=== PATIENT | male | born 1950 | race Caucasian/White ===

== ENCOUNTER 2017-03-25 12:09 | Inpatient (IN) | payer BC, MEDICARE ==
[~2017-03-25] VITALS: Ht 180.3 cm; Wt 142.1 kg
[2017-04-08] MEDS ORDERED: ZOCO40TA PO (15:38)
[2017-04-08] MEDS ORDERED: METF1000 PO (15:38)
[2017-04-08] MEDS ORDERED: HYZA50TA2 PO (15:38)
[2017-04-11] MEDS ORDERED: SCOPOLAMINE 1.5 MG PATCH T-DERMAL SCH (07:00)
[2017-04-11] MEDS ORDERED: metroNIDAZOLE 500 MG INJ 100 ML IV SCH (07:00)
[2017-04-11] MEDS ORDERED: ACETAMINOPHEN 1000 MG/100 ML VIAL IV SCH (07:00)
[2017-04-11] MEDS ORDERED: ceFAZolin 2 GM PREMIX 50 ML IV SCH (07:00)
[2017-04-11] MEDS ORDERED: CHLORHEXIDINE GLUCONATE 2 % 1 PACK (2 CLOTHS) TOPICAL PRN (07:00)
[2017-04-11] MEDS ORDERED: APREPITANT 40 MG CAP PO SCH (07:00)
[2017-04-11] MEDS ORDERED: POVIDONE IODINE 5% (ANTISEPSIS KIT) 4 APPLICATIONS EACH NARE PRN (07:00)
[2017-04-11] MEDS ORDERED: LACTATED RINGER'S 1000 ML IV PRN (07:00)
[2017-04-11] MEDS ORDERED: INSULIN HUMAN REGULAR 1,000 UNITS/10 ML VIAL SQ PRN (07:00)
[2017-04-11] MEDS ORDERED: SODIUM CHLORID 0.9% 500 ML IV PRN (07:00)
[2017-04-11] MEDS ORDERED: METOPROLOL TARTRATE 25 MG TAB PO PRN (07:00)
[2017-04-11] MEDS ORDERED: ONDANSETRON HCL 4 MG/2 ML VIAL IV PUSH SCH (07:00)
[2017-04-11] MEDS ORDERED: CALC600T25 (07:06)
[2017-04-11] MEDS ORDERED: VITA1000 PO (07:06)
[2017-04-11] MEDS ORDERED: OMEGCAP PO (07:06)
[2017-04-11] MEDS ORDERED: ASPI81CH CHEW (07:06)
[2017-04-11] MEDS ORDERED: BUPIVACAINE/EPINEPHRINE 0.25% 50 ML VIAL ONE (09:15)
[2017-04-11] MEDS ORDERED: Post-op Orders (for Pharmacy) MISC OTHER ONE (10:45)
[2017-04-11] MEDS ORDERED: ACETAMINOPHEN 325MG/HYDROcodone 7.5MG/15ML UDC PO PRN ×2 (10:45)
[2017-04-11] MEDS ORDERED: Post-op Orders (for Pharmacy) MISC XX ONE (10:45)
[2017-04-11] MEDS ORDERED: ONDANSETRON HCL 4 MG/2 ML VIAL IV PRN (10:45)
[2017-04-11] MEDS ORDERED: NALOXONE HCL 0.4 MG/ML AMP IV PRN (10:45)
[2017-04-11] MEDS ORDERED: diphenhydrAMINE HCL ELIXIR 12.5 MG/5 ML CUP PO PRN (10:45)
[2017-04-11] MEDS ORDERED: SODIUM CHLORIDE 0.9% FLUSH 10 ML FLUSH PRN (10:45)
[2017-04-11] MEDS ORDERED: diphenhydrAMINE HCL 50 MG/ML VIAL IV PRN (10:45)
[2017-04-11] MEDS ORDERED: SODIUM CHLORIDE 0.9% FLUSH 10 ML FLUSH IV FLUSH PRN (10:45)
[2017-04-11] MEDS ORDERED: MIDAZOLAM HCL 2 MG/2 ML VIAL ONE (11:16)
[2017-04-11] MEDS ORDERED: *morphine SULFATE 8 MG/ML PERIprocedure ONLY ONE ×2 (11:16→11:23)
[2017-04-11] MEDS: 1/2 NS + KCL 20 MEQ INJ 1,000 ML IV SCH ×2 (11:40→20:00)
[2017-04-11] MEDS ORDERED: MORPHINE SULFATE 30 MG/30 ML PCA IV SCH (12:00)
[2017-04-11] MEDS ORDERED: PROPOFOL 200 MG/20 ML AMP IV ONE (12:00)
[2017-04-11] MEDS ORDERED: LACTATED RINGER'S 1000 ML INJ 1,000 ML IV ONE (12:00)
[2017-04-11] MEDS ORDERED: ePHEDrine/NS 25 MG/5 ML SYR IV ONE (12:00)
[2017-04-11] MEDS ORDERED: PHENYLEPH/NS 1000 MCG/10 ML SYR IV ONE (12:00)
[2017-04-11] MEDS ORDERED: NEOSTIGMINE 3 MG/3 ML SYR IV ONE (12:00)
[2017-04-11] MEDS: METOCLOPRAMIDE HCL 10 MG/2 ML VIAL IV PUSH SCH ×3 (13:00→23:29)
[2017-04-11] MEDS ORDERED: *HYDROmorphone PF 1 MG VIAL PERIprocedural Use ONLY ONE (13:39)
[2017-04-11] MEDS ORDERED: DO NOT ADM ANY ANTICOAGULANT DRUGS PRN (14:15)
[2017-04-11] MEDS: ENOXAPARIN SODIUM 40 MG/0.4 ML SYRINGE SQ SCH (15:00)
[2017-04-11 16:00] VITALS: BP 155/70; PULSE 69; RESP 20; TEMP 97.6; O2SAT 99
[2017-04-11] MEDS: metroNIDAZOLE 500 MG INJ 100 ML IV SCH ×2 (16:54→23:28)
[2017-04-11] MEDS: SODIUM CHLORIDE 0.9% FLUSH 10 ML FLUSH IV FLUSH SCH (19:37)
[2017-04-11 20:00] VITALS: BP 144/62; PULSE 65; RESP 18; TEMP 97.3; O2SAT 94
[2017-04-11] MEDS ORDERED: SODIUM CHLORIDE 0.9% FLUSH 10 ML FLUSH IV FLUSH SCH (21:00)
[2017-04-11] MEDS: PCA - TOTAL MG MORPHINE DELIVERED PER SHIFT SCH (22:00)
[2017-04-12] VITALS: BP 154/72; PULSE 65; RESP 18; TEMP 97.6; O2SAT 98
[2017-04-12] MEDS: 1/2 NS + KCL 20 MEQ INJ 1,000 ML IV SCH ×4 (01:20→14:46)
[2017-04-12 04:00] VITALS: BP 153/65; PULSE 72; RESP 18; TEMP 97.4; O2SAT 97
[2017-04-12] MEDS: METOCLOPRAMIDE HCL 10 MG/2 ML VIAL IV PUSH SCH (05:45)
[2017-04-12] MEDS: PCA - TOTAL MG MORPHINE DELIVERED PER SHIFT SCH (06:00)
[2017-04-12 08:00] VITALS: BP 147/63; PULSE 76; RESP 20; TEMP 98.2; O2SAT 94
[2017-04-12] MEDS: metroNIDAZOLE 500 MG INJ 100 ML IV SCH (08:00)
[2017-04-12] MEDS: SODIUM CHLORIDE 0.9% FLUSH 10 ML FLUSH IV FLUSH SCH (08:34)
[2017-04-12] MEDS ORDERED: PANTOPRAZOLE SOD 40 MG DELAYED RELEASE TAB PO SCH (09:00)
[2017-04-12] MEDS ORDERED: METOCLOPRAMIDE HCL 10 MG/2 ML VIAL IV PUSH PRN (10:45)
[2017-04-12 12:00] VITALS: BP 147/67; PULSE 69; RESP 20; TEMP 98.3; O2SAT 98
[2017-04-12] MEDS ORDERED: LOSARTAN 50 MG TAB PO SCH (13:00)
[2017-04-12] MEDS: RESP: ALBUTEROL 1.25 MG/3 ML NEB (SCH) NEB ×2 (13:00→16:47)
--- NOTE | 2017-04-12 13:17 | HHI.PR ---
Subjective Subjective Notes Sitting on side of bed Nausea and pain controlled with medicatons Tolerated fluids C/O cough Objective Vitals/I&O Vital Signs Date Time Temp Pulse Resp B/P (MAP) Pulse Ox O2 Delivery O2 Flow Rate FiO2 04/12/17 12:00 98.3 69 20 147/67 (93) 98 04/11/17 14:48 Nasal Cannula 2 Cardiovascular: Regular Lungs: Rhonchi Abdomen: Post-op tenderness Extremities: SCD's on Wound Wound : Wound Location: Abdomen Appearance: Clean & Dry A/P Assessment and Plan 66yo M POD#1 laparoscopic VSG -Nebs Q6h and STAT CXR -Continue with using IS and frequent ambulation -Restart Losartan for BP control (home meds) -Continue to increase fluids as tolerated -Check blood sugars ACHS The exam, history, and the medical decision-making described in the above note were completed with the assistance of the mid-level provider. I reviewed and agree with the findings presented. I attest that I had a [id number] encounter with the patient on the same day, and personally performed and documented my assessment and findings in the medical record. Discharge Planning D/C later this evening Shirlene Martinez Apr 12, 2017 13:17 Mukesh Navas MD May 01, 2017 16:30
[2017-04-12] MEDS: ENOXAPARIN SODIUM 40 MG/0.4 ML SYRINGE SQ SCH (14:44)
--- NOTE | 2017-04-12 15:36 | RADRPT ---
EXAM DATE/TIME: 04/12/2017 14:30 [facility] COMPARISON: No previous studies available for comparison. INDICATIONS : Blood in his sputum MEDICAL HISTORY : None. SURGICAL HISTORY : None. ENCOUNTER: Initial ACUITY: 1 day PAIN SCORE: 0/10 LOCATION: Bilateral chest FINDINGS: A single view of the chest demonstrates the lungs to be symmetrically aerated without evidence of mas s, infiltrate or effusion. The cardiomediastinal contours are unremarkable. Osseous structures are intact. CONCLUSION: No acute disease. Kristopher Grier MD on April 12, 2017 at 15:34 Board Certified Radiologist. This report was verified electronically.
[2017-04-12 16:00] VITALS: BP 148/70; PULSE 72; RESP 20; TEMP 98.1; O2SAT 95
[2017-04-12] MEDS ORDERED: BENZOCAINE-MENTHOL (SUGAR FREE) 15 MG-3.6 MG LOZENGE BUCCAL ONE (17:00)
--- NOTE | 2017-04-28 15:27 | MP ---
cc: MINERVA NAVAS DATE OF SURGERY: 04/11/2017 DATE OF : 1950 PREOPERATIVE DIAGNOSIS: Morbid obesity with BMI of 43 complicated by hypercholesterolemia. POSTOPERATIVE DIAGNOSIS Morbid obesity with BMI of 43 complicated by hypercholesterolemia. PROCEDURE Laparoscopic vertical sleeve gastrectomy over 36-Mongolian drinking bougie. SURGEON Minerva Navas MD PRIMARY CARE PEDIATRICIAN: Vega Broderick MD. Dr. Brdoerick's assistance was necessary during the procedure due to the complexity of the procedure. Dr. Broderick was utilized for manipulation and exposure during the procedure. Dr. Broderick was present for this entire procedure, the plastic surgery assistant provided by [employer] was utilized for managing the camera. ANESTHESIA General endotracheal anesthesia ESTIMATED BLOOD LOSS Scant FINDINGS Fatty liver SPECIMENS None COMPLICATIONS None. PROCEDURE Laparoscopic vertical sleeve gastrectomy over a 36-Mongolian ViSiGi bougie. PROCEDURE IN DETAIL The patient was brought to the operating room and placed on the operating table in supine position, bilateral sequential inflation device placed on lower extremities. General anesthesia was instituted. Antibiotics was initiated. The abdomen was prepped and draped sterilely. A point 15 cm distal to the xiphoid in the midline was anesthetized with 0.25% Marcaine with epinephrine. A skin incision was made, 5-mm OptiView port placed under direct vision and pneumoperitoneum created. Under direct vision, three 5-mm left upper quadrant, a 15-mm right upper quadrant, 5-mm right upper quadrant ports placed. Prior to placement of all ports the skin and peritoneum were anesthetized with 0.25% Marcaine with epinephrine. The patient was placed in reverse Trendelenburg position left side up, the Brenda-Flex retractor was placed. The left lobe of the liver was retracted. The vasculature along the greater curvature of the stomach was using harmonic scalpel starting a distance 5-cm proximal to the pylorus and carried towards the angle of His. The angle of His was taken down bluntly. Posterior ligamentous attachments were sharply . A 36-Mongolian ViSiGi bougie was placed at the start of the case, was placed on suction. Division of the stomach started 5 cm proximal to the pylorus and carried towards the angle of His to completely excise approximately 80% of the stomach. This was performed using an Thorp Flex stapler at the pylorus. The first firing was with a black load, followed by a green load and four gold loads. All staple loads were reinforced with SeamGuard. A distance of 2 cm was left from the angle incisura and the staple line and a distance of 1 cm left from the GE junction and the staple line. The pylorus was then occluded, methylene blue tinged saline was instilled. There was no evidence of extravasation. The gastrocolic ligament was then sutured to the posterior leaflet of the SeamGuard using a 2-0 Vicryl suture in a running manner. Bleeding points were controlled with Evicel. The excised stomach was removed from the peritoneal cavity through the 15-mm port site in an Endopouch. The fascia at the 15-mm port site was approximated with 0 Vicryl suture. The CO2 was then released, all ports were removed, all skin incisions closed with 4-0 Monocryl. The abdominal wall was cleaned. A sterile dressing was placed. The patient was awakened and taken to the recovery room. MD DAREN Carlisle/christin /9:31 AM /3:15 PM
== END 2017-04-12 18:00 | disposition home or self-care (01) | DRG 621 ==
LOC: HSDI 04-11 06:03 → N07B 04-11 15:22
PROVIDERS: ADMIT Surgery; ATTEND Surgery
PROC: 0DB64Z3 Excision of Stomach, Percutaneous Endoscopic Approach, Vertical (ICD-10-PCS; principal; 2017-04-11 09:04)
DX: E66.01 Morbid (severe) obesity due to excess calories (principal); K76.0 Fatty (change of) liver, not elsewhere classified; I10 Essential (primary) hypertension; E11.9 Type 2 diabetes mellitus without complications; Z79.84 Long term (current) use of oral hypoglycemic drugs; Z68.41 Body mass index [BMI] 40.0-44.9, adult; E78.00 Pure hypercholesterolemia, unspecified
CPT/HCPCS: 71010; 82948; 94150; 94664; J0131; J0690; J1170; J1650; J2250; J2270; J2370; J2405; J2710; J2765; J3010; J7120; J7613; J8501